=== PATIENT | female | born 1950 | race Caucasian/White ===

== ENCOUNTER 2020-04-05 04:03 | Inpatient (IN) | payer MEDICAID ==
[~2020-04-05] VITALS: Ht 154.9 cm; Wt 51.3 kg
[2020-04-05] MEDS ORDERED: ONDANSETRON HCL 4MG/2ML INJ IV ONE (04:45)
[2020-04-05] MEDS ORDERED: IOHEXOL-350 100 ML BOTTLE ONE (05:24)
[2020-04-05] MEDS ORDERED: DEXAMETHASONE 10 MG/ML VIAL IV ONE (05:45)
[2020-04-05] MEDS ORDERED: LEVETIRACETAM 500MG PREMIX 100 ML IV ONE (05:45)
[2020-04-05 05:54] LABS: BASOPHILS % 0.4 % (0.0-2.0); CHLORIDE 106 mEq/L (98-107); EOSINOPHILS % 2.6 % (0.0-5.0); HEMATOCRIT. 42.4 % (36.0-48.0); HEMOGLOBIN. 14.4 g/dL (12.0-16.0); LYMPHOCYTES % 41.6 % (20.0-50.0); MEAN CORPUSCULAR HEMOGLOBIN 29.9 pg (28.0-32.0); MEAN CORPUSCULAR VOLUME 87.8 fL (81.0-99.0); MONOCYTES % 4.5 % (2.0-8.0); NEUTROPHILS % 50.9 % (40.0-76.0); PLATELET 275 x1000/uL (130-400); RED BLOOD CELL COUNT 4.83 mill/uL (4.2-5.4); RED CELL DISTRIBUTION WIDTH 13.9 % (11.6-14.6)
[2020-04-05 05:58] LABS: ETHANOL BLOOD < 10 mg/dL
[2020-04-05 06:01] LABS: LDL CHOLESTEROL 87 mg/dL (5-100)
[2020-04-05 06:03] LABS: CLARITY URINE CLEAR (CLEAR); COLOR URINE YELLOW (YELLOW); KETONES URINE NEGATIVE (NEGATIVE); LEUKOCYTE ESTERASE URINE NEGATIVE (NEGATIVE); NITRITE URINE NEGATIVE (NEGATIVE); OCCULT BLOOD URINE NEGATIVE (NEGATIVE); PROTEIN URINE NEGATIVE (NEGATIVE); SPECIFIC GRAVITY URINE 1.029 (1.005-1.030); UROBILINOGEN URINE 0.2 E.U./dL (0.2-1.0)
[2020-04-05 06:12] LABS: PROTHROMBIN TIME 10.8 sec (9.6-11.0)
[2020-04-05 06:13] LABS: *AMPHETAMINES SCREEN URINE NEGATIVE (NEGATIVE); *BARBITURATES SCREEN URINE NEGATIVE (NEGATIVE); *BENZODIAZEPINES SCREEN URINE NEGATIVE (NEGATIVE); *COCAINE SCREEN URINE NEGATIVE (NEGATIVE)
[2020-04-05 06:14] LABS: CANNABINOID URINE SCREEN NEGATIVE (NEGATIVE); METHADONE URINE SCREEN NEGATIVE (NEGATIVE); OPIATES URINE SCREEN NEGATIVE (NEGATIVE); PHENCYCLIDINE URINE SCREEN NEGATIVE (NEGATIVE)
[2020-04-05] MEDS ORDERED: ACETAMINOPHEN 325MG TABLET PO PRN (08:00)
[2020-04-05] MEDS ORDERED: ONDANSETRON HCL 4MG/2ML INJ IV PRN (08:00)
[2020-04-05] MEDS ORDERED: DEXT 5%/0.45% NACL KCL 10MEQ/L 1,000 ML IV SCH (08:00)
[2020-04-05] MEDS ORDERED: KETOROLAC 15MG/ML VIAL IV PRN (08:00)
[2020-04-05] MEDS ORDERED: CLONIDINE 0.1MG TABLET PO PRN (08:00)
[2020-04-05] MEDS ORDERED: DOCUSATE SODIUM 100MG CAPSULE PO PRN (08:00)
[2020-04-05] MEDS ORDERED: NICARDIPINE 100 MG in SODIUM CHLORIDE 0.9% 60 ML IV PRN (09:00)
[2020-04-05] MEDS ORDERED: GADOBENATE DIMEGLUMINE 529 MG/ML 10ML IV ONE (09:17)
[2020-04-05] MEDS: DEXT 5%/LACTATED RINGERS 1,000 ML IV SCH (10:12)
[2020-04-05] MEDS ORDERED: NITROPRUSSIDE 50 MG in SODIUM CHLORIDE 0.9% 250 ML IV PRN (11:15)
[2020-04-05] MEDS: DEXAMETHASONE 4MG/ML 1ML VIAL IV SCH (12:00)
[2020-04-05] MEDS ORDERED: LEVETIRACETAM 500MG PREMIX 100 ML IV SCH (21:00)
[2020-04-06 00:12] VITALS: BP 109/54
[2020-04-06 00:38] VITALS: BP 109/59
[2020-04-06] MEDS: DEXT 5%/LACTATED RINGERS 1,000 ML IV SCH (01:20)
[2020-04-06] MEDS: DEXAMETHASONE 4MG/ML 1ML VIAL IV SCH ×3 (03:20→12:38)
[2020-04-06 04:00] VITALS: BP 121/49
[2020-04-06 07:25] LABS: CHLORIDE 104 mEq/L (98-107)
[2020-04-06 07:37] LABS: HEMATOCRIT. 41.3 % (36.0-48.0); MEAN CORPUSCULAR HEMOGLOBIN 29.5 pg (28.0-32.0); MEAN PLATELET VOLUME 8.7 fl (7.4-10.4); PLATELET 287 x1000/uL (130-400); RED BLOOD CELL COUNT 4.75 mill/uL (4.2-5.4); RED CELL DISTRIBUTION WIDTH 13.8 % (11.6-14.6)
[2020-04-06 08:00] VITALS: BP 122/54
[2020-04-06] MEDS ORDERED: ENOXAPARIN 40MG/0.4ML SYR SUBCUT SCH (09:15)
[2020-04-06] MEDS ORDERED: LEVETIRACETAM 500MG PREMIX 100 ML IV SCH ×2 (10:30→10:45)
[2020-04-06] MEDS ORDERED: ONDANSETRON HCL 4MG/2ML INJ IV PRN (11:00)
[2020-04-06 11:43] LABS: PLATELET ESTIMATE NORMAL
[2020-04-06 12:00] VITALS: BP 119/50
[2020-04-06 14:00] VITALS: BP 119/50
== END 2020-04-06 17:36 | disposition home or self-care (01) | DRG 54 ==
LOC: ER 04:03 → 5WST 06:15 → EDBEDREQSVC 06:20 → EDBEDREQ 06:20 → EDBEDREQTM 06:20 → EDBEDREQSVC 12:02 → ENRESERV 16:38 → CANRESERV 16:38 → ENRESERV 16:41
PROVIDERS: ADMIT Hospitalist; ATTEND Hospitalist
DX: R51.9 Headache, unspecified (principal); I10 Essential (primary) hypertension; E87.6 Hypokalemia; G93.9 Disorder of brain, unspecified; Z90.13 Acquired absence of bilateral breasts and nipples; Z85.3 Personal history of malignant neoplasm of breast; G93.6 Cerebral edema; C79.31 Secondary malignant neoplasm of brain
CPT/HCPCS: 36415; 70496; 70498; 70553; 71045; 71250; 74176; 80053; 80305; 80320; 81003; 82378; 82962; 83721; 84484; 85025; 86300; 93005; 96374; 99291; A9577; J1100; J1650; J1885; J1953; J2405; Q9967; G0480

== ENCOUNTER 2021-04-16 17:03 | Inpatient (IN) | payer MEDICAID ==
[~2021-04-16] VITALS: Ht 157.5 cm; Wt 56.8 kg
[2021-04-16] MEDS ORDERED: LEVETIRACETAM 1000MG PREMIX 100 ML IV ONE (17:30)
[2021-04-16] MEDS ORDERED: LORAZEPAM 2MG/ML CPJ IV ONE ×2 (17:30→17:45)
[2021-04-16] MEDS ORDERED: SODIUM CHLORIDE 0.9% 1,000 ML IV ONE (17:30)
[2021-04-16 18:03] LABS: HEMOGLOBIN. 11.1 g/dL (12.0-16.0); MEAN CORPUSCULAR HEMOGLOBIN 34.4 pg (28.0-32.0); MEAN CORPUSCULAR VOLUME 105.5 fL (81.0-99.0); MEAN PLATELET VOLUME 7.4 fl (7.4-10.4); PLATELET 121 x1000/uL (130-400); RED BLOOD CELL COUNT 3.22 mill/uL (4.2-5.4); RED CELL DISTRIBUTION WIDTH 16.9 % (11.6-14.6)
[2021-04-16 18:09] LABS: CHLORIDE 106 mEq/L (98-107)
[2021-04-16 18:13] LABS: ETHANOL BLOOD < 10 mg/dL
[2021-04-16 18:53] LABS: PLATELET ESTIMATE SLIGHTLY DECREASED
[2021-04-16 21:42] LABS: CLARITY URINE CLEAR (CLEAR); COLOR URINE YELLOW (YELLOW); KETONES URINE NEGATIVE (NEGATIVE); LEUKOCYTE ESTERASE URINE NEGATIVE (NEGATIVE); NITRITE URINE NEGATIVE (NEGATIVE); OCCULT BLOOD URINE NEGATIVE (NEGATIVE); PH URINE 7.5 (4.5-8.0); PROTEIN URINE NEGATIVE (NEGATIVE); SPECIFIC GRAVITY URINE 1.007 (1.005-1.030); UROBILINOGEN URINE 0.2 E.U./dL (0.2-1.0)
[2021-04-16 21:58] LABS: *BARBITURATES SCREEN URINE NEGATIVE (NEGATIVE); *BENZODIAZEPINES SCREEN URINE PRESUMTIVE POSITIVE (NEGATIVE); *COCAINE SCREEN URINE NEGATIVE (NEGATIVE); METHADONE URINE SCREEN NEGATIVE (NEGATIVE); OPIATES URINE SCREEN NEGATIVE (NEGATIVE)
[2021-04-16 21:59] LABS: *AMPHETAMINES SCREEN URINE NEGATIVE (NEGATIVE); CANNABINOID URINE SCREEN NEGATIVE (NEGATIVE); PHENCYCLIDINE URINE SCREEN NEGATIVE (NEGATIVE)
[2021-04-17] MEDS ORDERED: ONDA4TAB50 MT (02:04)
[2021-04-17] MEDS ORDERED: SENN-257 MT (02:09)
[2021-04-17] MEDS ORDERED: DEXA4TAB MT (02:09)
[2021-04-17] MEDS ORDERED: FAMO20TA8 MT (02:09)
[2021-04-17] MEDS ORDERED: AMLO2.5T45 MT (02:09)
[2021-04-17] MEDS ORDERED: SERT25TA74 MT (02:09)
[2021-04-17] MEDS ORDERED: LEVE500T19 MT (02:09)
[2021-04-17] MEDS ORDERED: RIVA20TA MT (02:09)
[2021-04-17] MEDS ORDERED: ANAS1TAB49 MT (02:09)
[2021-04-17] MEDS ORDERED: ATOR20TA65 MT (02:09)
[2021-04-17 02:30] VITALS: BP 127/60
[2021-04-17] MEDS ORDERED: ONDANSETRON HCL 4MG/2ML INJ IV PRN (03:30)
[2021-04-17] MEDS ORDERED: LEVETIRACETAM 500 MG in SODIUM CHLORIDE 0.9% 100 ML IV SCH (03:30)
[2021-04-17 04:00] VITALS: BP 106/56
[2021-04-17] MEDS ORDERED: *PATIENT'S OWN MEDICATION STORAGE XX SCH (04:15)
[2021-04-17 06:14] LABS: HEMATOCRIT. 31.7 % (36.0-48.0); HEMOGLOBIN. 10.6 g/dL (12.0-16.0); MEAN CORPUSCULAR HEMOGLOBIN 35.1 pg (28.0-32.0); MEAN CORPUSCULAR VOLUME 105.1 fL (81.0-99.0); MEAN PLATELET VOLUME 7.5 fl (7.4-10.4); PLATELET 120 x1000/uL (130-400); RED BLOOD CELL COUNT 3.02 mill/uL (4.2-5.4); RED CELL DISTRIBUTION WIDTH 16.8 % (11.6-14.6)
[2021-04-17] MEDS: DEXAMETHASONE 4MG/ML 1ML VIAL IV SCH ×3 (06:28→18:30)
[2021-04-17 06:37] LABS: CHLORIDE 108 mEq/L (98-107)
[2021-04-17] MEDS: SODIUM CHLORIDE 0.9% 1,000 ML IV SCH ×2 (06:39→17:26)
[2021-04-17 08:00] VITALS: BP 123/61
[2021-04-17] MEDS: LEVETIRACETAM 500MG PREMIX 100 ML IV SCH ×2 (08:22→21:11)
[2021-04-17] MEDS: FAMOTIDINE 20MG/2ML VIAL IV SCH (08:22)
[2021-04-17 12:00] VITALS: BP 138/59
[2021-04-17] MEDS ORDERED: NALOXONE HCL 0.4MG/ML VIAL IV PRN (15:00)
[2021-04-17] MEDS ORDERED: INFLUENZA VACCINE 05/PF 0.5 ML SYRINGE IM ONE (15:45)
[2021-04-17] MEDS ORDERED: PNEUMOCOCCAL 23-VAL P-SAC VAC 0.5 ML IM ONE (15:45)
[2021-04-17] MEDS ORDERED: POTASSIUM CHLORIDE INJ 40 MEQ in DEXT 5% WATER 250 ML IV NR (16:00)
[2021-04-17] MEDS: LORAZEPAM 2MG/ML CPJ IV PRN (16:02)
[2021-04-17 16:34] LABS: PLATELET ESTIMATE DECREASED
[2021-04-17] MEDS ORDERED: GADOTERATE MEGLUMINE 5 MMOL/10 ML VIAL IV ONE (16:55)
[2021-04-17 20:00] VITALS: BP 141/86
[2021-04-17] MEDS: ATORVASTATIN CALCIUM 20MG TABLET PO SCH (21:00)
[2021-04-18] VITALS: BP 118/60
[2021-04-18] MEDS: DEXAMETHASONE 4MG/ML 1ML VIAL IV SCH ×4 (02:05→23:57)
[2021-04-18 04:00] VITALS: BP 148/73
[2021-04-18 06:34] LABS: CHLORIDE 106 mEq/L (98-107)
[2021-04-18 06:39] LABS: HEMOGLOBIN. 10.3 g/dL (12.0-16.0); MEAN CORPUSCULAR VOLUME 102.3 fL (81.0-99.0); MEAN PLATELET VOLUME 7.5 fl (7.4-10.4); PLATELET 125 x1000/uL (130-400); RED BLOOD CELL COUNT 2.94 mill/uL (4.2-5.4); RED CELL DISTRIBUTION WIDTH 16.8 % (11.6-14.6)
[2021-04-18] MEDS: SODIUM CHLORIDE 0.9% 1,000 ML IV SCH ×2 (07:10→20:26)
[2021-04-18 08:00] VITALS: BP 125/72
[2021-04-18] MEDS: LEVETIRACETAM 500MG PREMIX 100 ML IV SCH ×2 (08:53→20:43)
[2021-04-18] MEDS: FAMOTIDINE 20MG/2ML VIAL IV SCH (08:53)
[2021-04-18] MEDS: MORPHINE SULFATE 2 MG/ML CPJ (NOT FOR IM USE) IV PRN (12:42)
[2021-04-18 13:37] LABS: PLATELET ESTIMATE SLIGHTLY DECREASED
[2021-04-18 16:00] VITALS: BP 110/53
[2021-04-18 20:00] VITALS: BP 117/70
[2021-04-18] MEDS: ATORVASTATIN CALCIUM 20MG TABLET PO SCH (20:55)
[2021-04-19] VITALS: BP 140/71
[2021-04-19 04:00] VITALS: BP 127/62
[2021-04-19] MEDS: DEXAMETHASONE 4MG/ML 1ML VIAL IV SCH ×4 (06:13→23:55)
[2021-04-19 08:00] VITALS: BP 120/59
[2021-04-19] MEDS: LEVETIRACETAM 500MG PREMIX 100 ML IV SCH ×2 (08:57→20:03)
[2021-04-19] MEDS: FAMOTIDINE 20MG/2ML VIAL IV SCH (08:57)
[2021-04-19] MEDS: SODIUM CHLORIDE 0.9% 1,000 ML IV SCH ×2 (08:57→22:24)
[2021-04-19 12:00] VITALS: BP 132/69
[2021-04-19] MEDS: LORAZEPAM 2MG/ML CPJ IV PRN (14:17)
[2021-04-19 16:00] VITALS: BP 110/52
[2021-04-19 20:00] VITALS: BP 138/73
[2021-04-19] MEDS: ATORVASTATIN CALCIUM 20MG TABLET PO SCH (20:02)
[2021-04-20] VITALS: BP 125/60
[2021-04-20 04:00] VITALS: BP 96/57
[2021-04-20] MEDS: DEXAMETHASONE 4MG/ML 1ML VIAL IV SCH ×3 (05:08→19:03)
[2021-04-20 08:00] VITALS: BP 130/54
[2021-04-20] MEDS: MORPHINE SULFATE 2 MG/ML CPJ (NOT FOR IM USE) IV PRN (10:34)
[2021-04-20] MEDS: FAMOTIDINE 20MG/2ML VIAL IV SCH (10:34)
[2021-04-20] MEDS: LEVETIRACETAM 500MG PREMIX 100 ML IV SCH ×2 (10:35→21:56)
[2021-04-20 12:00] VITALS: BP 142/67
[2021-04-20 16:00] VITALS: BP 139/70
[2021-04-20 20:00] VITALS: BP 135/69
[2021-04-20] MEDS: ATORVASTATIN CALCIUM 20MG TABLET PO SCH (21:56)
[2021-04-21 00:01] VITALS: BP 153/82
[2021-04-21] MEDS: DEXAMETHASONE 4MG/ML 1ML VIAL IV SCH ×3 (01:46→12:55)
[2021-04-21] MEDS: SODIUM CHLORIDE 0.9% 1,000 ML IV SCH ×2 (01:47→14:54)
[2021-04-21 04:00] VITALS: BP 111/64
[2021-04-21] MEDS: MORPHINE SULFATE 2 MG/ML CPJ (NOT FOR IM USE) IV PRN (04:31)
[2021-04-21 08:00] VITALS: BP 124/60
[2021-04-21] MEDS: LEVETIRACETAM 500MG PREMIX 100 ML IV SCH (08:58)
[2021-04-21] MEDS: FAMOTIDINE 20MG/2ML VIAL IV SCH (08:58)
[2021-04-21 12:00] VITALS: BP 118/72
[2021-04-21 16:00] VITALS: BP 138/74
[2021-04-21 17:04] VITALS: BP 138/74
== END 2021-04-21 17:35 | disposition hospice, home (50) | DRG 41 ==
LOC: ER 17:03 → ENRESERV 23:47 → 8WST 04-17 02:59 → 6EST 04-20 17:01
PROVIDERS: ADMIT Internal Medicine; ATTEND Internal Medicine
PROC: 4A10X4Z Monitoring of Central Nervous Electrical Activity, External Approach (ICD-10-PCS; principal; 2021-04-18)
DX: C79.31 Secondary malignant neoplasm of brain (principal); G93.41 Metabolic encephalopathy; G40.401 Other generalized epilepsy and epileptic syndromes, not intractable, with status epilepticus; D69.6 Thrombocytopenia, unspecified; I95.9 Hypotension, unspecified; D64.9 Anemia, unspecified; S91.302A Unspecified open wound, left foot, initial encounter; Z66 Do not resuscitate; I73.9 Peripheral vascular disease, unspecified; X58.XXXA Exposure to other specified factors, initial encounter; G40.909 Epilepsy, unspecified, not intractable, without status epilepticus; Z79.899 Other long term (current) drug therapy; Z79.01 Long term (current) use of anticoagulants; Y93.89 Activity, other specified; Y92.89 Other specified places as the place of occurrence of the external cause; Y99.8 Other external cause status; Z85.118 Personal history of other malignant neoplasm of bronchus and lung; Z85.3 Personal history of malignant neoplasm of breast; Z23 Encounter for immunization
CPT/HCPCS: 36415; 70553; 80048; 80053; 80305; 80320; 81003; 84443; 85025; 90686; 90732; 92610; 95816; 97162; 99285; A9577; C1893; J1100; J1953; J2060; J2270; J2405; J3480; J3490; J7030; J7040; J7060; G0480